=== PATIENT | male | born 1945 | race Asian ===

== ENCOUNTER → 2023-06-07 08:39 | Outpatient (REF) | payer MEDICARE, MEDICAID, SELFPAY ==
--- NOTE | 2023-06-07 08:54 | CA_ITS ---
Transthoracic Echocardiogram Patient (Last, First, Middle): Christina Jones, Gender: Male Date of : 1945 Age: 78 Procedure Date: 06/07/2023 Procedure Type: Transthoracic Echocardiogram Location: [facility] Height: 167.64 cm Weight: 71.22 kg BSA: 1.80 m2 Heart Rate: 55 bpm BP: 138 / 70 mmHg Contracts Paralegal: SB Referring MD: Lexie Lawrence NP Symptoms: I63.9 CEREBRAL INFARCTION Study Quality: Adequate ECG Rhythm: Bradycardia Conclusions: - The left ventricular systolic function is normal. The calculated ejection fraction is 61% by biplane method. - There is severe septal asymmetric hypertrophy. - No obvious valvular pathology seen on this study. 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 Findings Left Ventricle Normal left ventricular cavity size. There is mildly increased left ventricular wall thickness. The left ventricular systolic function is normal. The calculated ejection fraction is 61% by biplane method. There is no evidence of regional wall motion abnormalities. Evidence suggests grade I (mild) diastolic dysfunction. There is severe septal asymmetric hypertrophy. LV peak GLS -13.2% (diminished). Right Ventricle Normal right ventricular cavity size and systolic function. Atria Both atria are normal in size. Aortic Valve There is a normal trileaflet aortic valve. There is mild calcification of the aortic valve. There is no aortic valve stenosis. Trace to mild aortic regurgitation. Mitral Valve The mitral valve appears normal. There is trace mitral valve regurgitation. There is no mitral valve stenosis. Pulmonic Valve There is trace pulmonic valve regurgitation. Tricuspid Valve Normal tricuspid valve structure. There is trace tricuspid valve regurgitation. There is no evidence of pulmonary hypertension. 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 Venous The inferior vena cava is normal in size and collapses greater than 50% with inspiration. Pericardium/Pleural There is no evidence of pericardial effusion. Prior Study Comparison No prior study available for comparison. Recommendations, Care & Conclusions No obvious valvular pathology seen on this study. Measurements 2D Linear Measurements IVSd: 1.68 0.6-0.9/0.6-1.0 cm LVIDd: 4.12 3.9-5.3/4.2-5.9 cm LVIDd Index: 2.29 2.4-3.2/2.2-3.1 cm/m2 LVIDs: 2.85 2.0-3.6 cm LVPWd: 1.14 0.7-1.1 cm LA Diam: 4.20 2.7-3.8/3.0-4.0 cm LAIDs Index: 2.33 1.5-2.3 cm/m2 LV Mass: 274.89 67-162/88-224 g LV Mass Index: 152.72 43-95/49-115 g/m2 LVOT Diam: 2.00 3.0+(-)1.3 cm 2D Systolic Function EF 4C: 57.90 >55% EF 2C: 67.50 >55% EF BiP: 61.40 >55% Mitral Valve MV Pk E: 0.76 MV PK A: 0.78 MV Decel Time: 228.00 E/A: 1.00 E'Lateral: 6.64 E'Medial: 3.81 E/E' Med: 19.90 E/E' Lat: 11.40 PHT: 67.00 MVA PHT: 3.28 Decel Taylor: 3.33 Aortic Valve AoV Pk Raulito: 0.98 AoV Pk Grad: 4.00 LAURA: 2.85 AI Pk Raulito: 3.65 AI Taylor: 1.78 LVOT LVOT Pk Raulito: 0.84 LVOT Mn Raulito: 0.56 LVOT VTI: 0.21 LVOT Pk Grad: 3.00 LVOT Mn Grad: 1.00 LVOT Diam: 2.00 LVOT Area: 3.14 Diastolic Function MV Pk E: 0.76 MV Pk A: 0.78 E/A: 1.00 E'Medial: 3.81 E/E' Med: 19.90 E' Laterial: 6.64 E/E' Lat: 11.40 Right Ventricle TAPSE (mm): 19.80 TVS' Raulito: 9.79 Tricuspid Valve TR Pk Raulito: 2.30 TR Pk Grad: 21.00 RA Press: 3.00 RVSP: 24.00 Great Vessels Aorta Sinus of Valsalva: 2.80 2.0-3.5 cm Ao Asc: 4.00 2.1-3.4 cm Ao Arch: 3.80 Pulmonary Veins Pulm Vein S/D 1.50 Pulmonary Valve PV Pk Raulito: 0.68 Peak PV Grad: 2.00 IA Pk Raulito: 1.33 Updated in Other Vendor System with Status of Final Carl Gray MD electronically signed on 06/07/2023 12:17:11 PM with status of Final
== END ==
LOC: HO.CARD 08:39
PROVIDERS: PCP Nurse Practitioner Family; Visit Provider Nurse Practitioner Family
DX: I63.9 Cerebral infarction, unspecified (principal)
CPT/HCPCS: 93306; 93356

== ENCOUNTER → 2023-06-07 08:54 | Outpatient (BNV) | payer MEDICARE, MEDICAID, SELFPAY | PROVIDERS: PCP Nurse Practitioner Family; Visit Provider Internal Medicine | DX: I35.8 Other nonrheumatic aortic valve disorders (principal) | CPT/HCPCS: 93306 ==